=== PATIENT | male | born 1950 | race Caucasian/White ===

== ENCOUNTER 2016-09-20 19:58 | Inpatient (IN) | payer MEDICARE, OTHER ==
[~2016-09-20] VITALS: Ht 180.3 cm; Wt 82.4 kg
--- NOTE | ~2016-09-20 | CO ---
ADMIT: 09/20/2016 RM/LOC: 632 [facility] MR#: [id number] [address] [address] DESHAUN TAYLOR [address] [place] [address] Consultation SEX: M AGE: 66 : 1950 Corrected: 09/25/2016 0835 djs DATE OF CONSULTATION: 09/24/2016 ATTENDING PHYSICIAN: Ant Brown CONSULTING PHYSICIAN: Praveen Cabrera MD REASON FOR CONSULTATION: Left knee cellulitis. Rule out septic bursitis. HISTORY OF PRESENT ILLNESS: The patient is a 66-year-old male, who a couple weeks ago, was out on his property, landed on his left knee on some riff-raff. He had started to develop some pain, redness, and swelling here. He was seen by primary care physician. Had a lot of cellulitis at that time. We placed a needle in to his bursa, got just a little bit of fluid out, 1000 white cells, and ended up growing out some methicillin-sensitive staph. He was treated on some p.o. antibiotics. Initially, got a shot of Rocephin. Was seen, was improving with this. He had some Bactrim added to his p.o. antibiotics but about a day or two later started having increased symptoms, came to the hospital and was admitted for IV antibiotic treatment. Initially, his C- reactive protein was 17; it is now down to 7, and still had a couple less fever spikes. White count is normal and does have an elevated sedimentation rate. Speaking with Ray today, he says that things are better and overall he feels better. PHYSICAL EXAMINATION: Examination of the left knee, redness over the anterior aspect extends medially and laterally here a little bit. He says this is actually quite improved over the last day or so here. He is on IV antibiotics, vancomycin, and looks like Rocephin. Had some soft tissue swelling here. No joint irritability. Range his knee without any pain or discomfort. Really not any fluid collection or fluctuance over the prepatellar bursa but maybe just a little thickened bursal tissue and soft tissue swelling here. ADMIT: 09/20/2016 RM/LOC: 632 [facility] MR#: [id number] [address] [address] DESHAUN TAYLOR [address] [place] [address] Consultation SEX: M AGE: 66 : 1950 ASSESSMENT: Left knee cellulitis. I really do not feel any significant fluid in the prepatellar bursa. There is some soft tissue swelling maybe a little bursal thickening here. PLAN: At this point, I would continue with IV antibiotics and warm compresses here. He can be up weightbearing as tolerated. I think once he continues to show improvement, he could probably be put on some p.o. antibiotics. I do not see any operative indications at this time or any significant fluid in the prepatellar bursa. We will follow along as well. Praveen Cabrera MD/ ronny JOB #: [id number] CC: Ant Brown, Attending Physician Ant Brown, Family Physician Corrected: 09/25/2016 0835 sam
--- NOTE | 2016-09-24 00:45 | ER ---
ADMIT: 09/20/2016 RM/LOC: 632 [facility] MR#: [id number] [address] [address] AIDANERDESHAUN [address] [place] [address] Emergency Room Report SEX: M AGE: 66 : 1950 DATE: 09/20/2016 HISTORY OF PRESENT ILLNESS: The patient is a 66-year-old male with a past medical history of atrial fibrillation and back surgery, who came to the ER with chief complaint of left knee pain and swelling and erythema. The patient states for the last 3 days, he noticed some redness and swelling and erythema over the left knee and he has a history of left knee trauma, fall and hitting the concrete in the last few weeks. After which, the knee also was swollen. The patient states yesterday he has been seen by Dr. Brown for the same reason and the left knee tapping which was done from the superior part over the patella did not result him any pause. The patient also has been seen today by Dr. Cabrera, Orthopedic Surgery and the patient is already on antibiotics, doxycycline and Bactrim and ceftriaxone for the treatment. The patient states that the last few days he has had a fever of 102 and came to the ER for further followups and treatments. The patient denies any cough, runny nose, chest pain, shortness of breath, abdominal pain, or any other difficulties other than the left knee pain. The patient denies any similar symptoms in the past. PHYSICAL EXAMINATION: VITAL SIGNS: The patient had a low fever of 100.3 in the ER. VITAL SIGNS: The patient has heart rate of 95, blood pressure was stable. The patient was not tachypnea. HEAD AND NECK: Normal. CHEST: Clear bilaterally. HEART: Normal heart sounds. ABDOMEN: Soft. EXTREMITIES: The right lower extremity is normal. The patient had normal peripheral pulses. Normal capillary filling in all extremities, in the left lower extremity and the need is mild ballottement. There is erythema and warmth on the left knee mostly on the superior part and all of the superior part of patella and also there is some lymphangitis streaks going superior and inferior from the knee. The patient can easily do active range of motion of the knee to a very good degree. Considering the patient's presentation, acute ADMIT: 09/20/2016 RM/LOC: 632 [facility] MR#: [id number] [address] [address] STANDERDESHAUN [address] [place] [address] Emergency Room Report SEX: M AGE: 66 : 1950 septic bursitis versus acute septic arthritis are top two differentials, considering the patient can do the complete active range of motion without difficulty. Put acute septic bursitis at the top of our differentials, at this stage and with this presentation, I do not see him the best idea to do the arthrocentesis of the left knee considering that there is a superficial infection over the area as I do not want to introduce any infection inside the joint. Still it could be septic arthritis in a very early stages and needs further followups and repeat examinations. The patient received vancomycin 1 g IV in the ER. The patient's vaccinations are up-to-date. Internal Medicine was consulted after the patient was admitted for further followups and treatments of left knee bursitis, cellulitis, rule out left knee septic arthritis, and sepsis. Michele Cook MD/ ronny JOB #: [id number] CC: Ant Brown MD, Attending Physician Ant Brown MD, Family Physician
[2016-09-26] MEDS ORDERED: FIBER500 MG PO (13:27)
[2016-09-26] MEDS ORDERED: BACTRIM DS DPS1 TAB PO (13:27)
[2016-09-26] MEDS ORDERED: BETAPACE DPS80 MG PO (13:27)
[2016-09-26] MEDS ORDERED: VIBRAMYCIN-DPS100 M2 PO (13:27)
--- NOTE | 2016-09-27 09:14 | CO ---
ADMIT: 09/20/2016 RM/LOC: 632 [facility] MR#: [id number] [address] [address] BRANDONDESHAUN [address] [place] [address] Consultation SEX: M AGE: 66 : 1950 DATE OF CONSULTATION: 09/23/2016 ATTENDING PHYSICIAN: Ant Brown CONSULTING PHYSICIAN: Praveen Cabrera MD CHIEF COMPLAINT: Left knee cellulitis and swelling. HISTORY OF PRESENT ILLNESS: This is a 66-year-old male, who I am seeing at the request Dr. Brown for consultation of left knee pain and cellulitis. His history is well outlined in his H and P by Dr. Brown. I will review some of that here. He was doing some work last week. He was doing a lot of kneeling and he hit his knee on some concrete rubble. He eventually developed pain and swelling. He was seen by Dr. Brown last week and was started on oral antibiotics either Bactrim or doxycycline. He saw Dr. Cabrera for consultation for possible bursitis in the Orthopedic office on Friday, and was added either Bactrim or doxycycline, so either way he was on both of those. No indications for surgery at that time. Over the weekend, his pain got worse, he started to spike some fevers, so he came into the emergency room on the for further evaluation. He was admitted due to that and was started on IV vancomycin. Apparently, he also had some Rocephin. He reports that since he was started on his IV antibiotics, his swelling has improved and his redness has come down. He has no pain with knee motion. He has no prior history of injury other than a remote history several years ago of possibly a hematoma that was drained by his primary care doctor at that time, but no other problems since then. Other than the fevers and chills, he has otherwise felt fairly well. Given all of this, Orthopedic consultation has been requested. PAST MEDICAL HISTORY: 1. Paroxysmal atrial fibrillation. 2. History of BPH. 3. History of cardiomyopathy. 4. Family history of malignant hyperthermia without personal history. PAST SURGICAL HISTORY: 1. Diskectomy. 2. Hernia repair x2. 3. Finger surgery on the left hand. SOCIAL HISTORY: Denies smoking or alcohol abuse. He is retired. He is very active in the outdoors. He lives in [place] with his . FAMILY HISTORY: Coronary artery disease and Meniere's disease. MEDICATIONS: Reviewed in the MAR. ALLERGIES: MUSCLE RELAXERS DUE TO SOME FORM OF A FAMILY HISTORY SETTING UP MALIGNANT HYPERTHERMIA, BUT NO PERSONAL HISTORY OF ALLERGY. ADMIT: 09/20/2016 RM/LOC: 632 [facility] MR#: [id number] [address] [place], [place] [id number] AIDANDESHAUN [address] [place] [address] Consultation SEX: M AGE: 66 : 1950 LABORATORY AND IMAGING DATA: White count on admission 8.1, down to 7.8 yesterday; hemoglobin was 13.8, down to 12.3 yesterday; sedimentation rate 71, up from 62 on admission. CRP 10.8, down from 17.5 on admission. Previously obtained x-rays of the knee from date of admission, showed degenerative changes about the left knee with no acute bony abnormalities, anterior soft tissue swelling. REVIEW OF SYSTEMS: Negative other than those reported in the HPI. PHYSICAL EXAMINATION: GENERAL: Otherwise, comfortable-appearing, 66-year-old male, in no distress, lying comfortably in a hospital bed in room #632. He is oriented x3, pleasant, and interactive. EXTREMITIES: Exam of the left knee shows the skin is intact without acute abnormal findings. He does have a couple of small scars, one superior lateral by patella, and one inferior medial around by the joint line. He has diffuse redness anteriorly about the knee, stops at about the superior pole of patella, down about tibial tubercle, goes a little bit medial and a little bit lateral to about the mid point of the knee. He has no feelings of fluid collection or septic bursitis. The knee is slightly warm to touch. He has quite a bit of edema diffusely about the knee which is mildly tender to palpation. He has no appreciable joint effusion. He has full range of motion without discomfort within the knee itself, just a little bit of tightness anteriorly. He has stable ligaments. His neurovascular status is intact. He does have swelling about the ankle and foot. However, he had a 4 inch Nish wrap just around his calf where there is no swelling or edema, had been squeezing that inferiorly down into his foot. ASSESSMENT: Left knee cellulitis. PLAN: Deshaun has gotten quite a bit better with the IV antibiotics. We will ADMIT: 09/20/2016 RM/LOC: 632 [facility] MR#: [id number] [address] [place] [phone] STANDER DESHAUN L [address] [place] [address] Consultation SEX: M AGE: 66 : 1950 have him continue with those per primary care. I think he is going to do fine resolving this over the course of next couple of weeks with antibiotics. Right now, there is no surgical indication. He does not have a septic joint. He does not have septic drainable prepatellar bursitis, most likely cellulitis. He could even have a small hematoma of some place within there, it is not palpable or a drainable mass at all. We will continue to follow given and his improvement, his is CRP is trending down nicely which would give us a good indication of acute treatment, so we will continue to follow. No surgical indications at this time. I thank Dr. Brown for requesting Orthopedic consultation and let me participate in Deshaun's care. Jerson Valenzuela PA-C / Praveen Cabrera MD / ronny JOB #: [id number] CC: Ant Brown, Attending Physician Ant Brown, Family Physician
--- NOTE | 2016-10-04 16:27 | HP ---
ADMIT: 09/20/2016 RM/LOC: 632 [facility] MR#: [id number] 2620 [facility] [address] [place], [place] [address] DESHAUN TAYLOR [address] [place] [address] History and Physical SEX: M AGE: 66 : 1950 Corrected: 09/23/2016 1415 ariadne DATE OF SERVICE: 09/20/2016 HISTORY OF PRESENT ILLNESS: Mr. Taylor is a 66-year-old male with past medical history significant for paroxysmal atrial fibrillation, BPH with intermittent lower urinary tract symptoms, history of cardiomyopathy, and recent trauma to his left knee. He states that he was moving rocks to clean up a place just [place] bit north of [place]. He put his foot down and lost his balance and started to fall forward. He knelt down on his left knee and a jagged piece of rock hit him in the left knee. He states that he immediately had pain and knew that his knee would be painful and swollen for quite some time. He presented to the [facility] on 09/19 after 2 days of fevers, chills, left knee and subcutaneous tissue swelling as well as quite severe pain. He was able to move the joint at all times, but did have quite bit of discomfort. He had some fluid drained from his prepatellar bursa and sent for studies. He was started on doxycycline in clinic and had a followup set up with Dr. Cabrera of Orthopedics on 09/20/2016. The patient states that he did attend the appointment with Dr. Cabrera and was placed on Bactrim as well as doxycycline. He states that radiographs of the knee were performed and were negative for any joint fracture. He states that after his clinic appointment with Dr. Cabrera on 09/20, he went home and continued to take the Bactrim as well as the doxycycline, but continued to have quite high fevers. He states that his grandchildren came over to visit and his leg was quite a bit more swollen and more painful than it had been on the and he was noted to have a fever up to 103. His encouraged him to go to the emergency room. He was seen in the emergency room and provided with some normal saline bolus, some Tylenol as well as started on IV vancomycin. He was admitted for concern for the possible septic bursitis versus superficial cellulitis. He states that he has continued to have some fevers while here in the hospital today, but thinks that may be they are maybe a little bit less than they had been. He denies any other systemic symptoms. He is not having any weight loss or weight gain. He is not having any changes in hearing and changes in vision. He is not having any headaches. He is not having any chest pain or shortness of breath at this time. He is not having any difficulties with his bowel or bladder. He states that he is taking in good oral intake. He thinks that the leg is less swollen today than it was last evening when he presented to the emergency room. He continues to have some superficial discomfort of the area, but no discomfort in his joint. Review of his synovial/bursal fluid studies from 09/19 reveal a bloody specimen with approximately 1082 white cells with 24% of those being PMNs. His Gram-stain was negative for any organism and his culture is currently pending at this point in time. PAST MEDICAL HISTORY: Significant for the paroxysmal atrial fibrillation for which he takes sotalol, history of BPH with lower urinary tract symptoms, history of , history of cardiomyopathy, and family history of malignant hyperthermia. ADMIT: 09/20/2016 RM/LOC: 632 [facility] MR#: [id number] [facility] [address] [address] DESHAUN TAYLOR [address] [place] [address] History and Physical SEX: M AGE: 66 : 1950 PAST SURGICAL HISTORY: Significant for a diskectomy, hernia repair x2, finger surgery of the second digit on the left hand and some random breaks and scratches here and there. HOME MEDICATIONS: The only prescription home medication that he consistently takes is the sotalol. He also does take some fiber for stomach ulcers. ALLERGIES: HE STATES THAT HE DOES HAVE A FAMILY HISTORY OF SOME PROBLEMS WITH MUSCLE RELAXANTS IN THE SETTING OF MALIGNANT HYPERTHERMIA. HE DOES NOT TAKE MUSCLE RELAXANTS FOR THAT REASON. HE DOES NOT HAVE ANY PERSONAL HISTORY OF ALLERGIES TO THEM. FAMILY MEDICAL HISTORY: His mother had hypertension and passed of old age at the age of 97. His father had a history of coronary artery disease and had his first heart attack in the 1970s and then passed approximately 20 years later at the age of 89. His father was a heavy smoker. He has two siblings that have had Meniere disease and continue to struggle with it. He has one sibling who has a history of plantar fasciitis and continues to work on controlling this issue. He has children who are currently healthy. SOCIAL HISTORY: He denies any tobacco use. He denies any significant alcohol use. He denies any drug use. He has not had any problems previously with prescription medications such as narcotics. 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 He continues to be quite active and enjoys being outdoors. He and his reside in [place] and have children who are fairly close. REVIEW OF SYSTEMS: A complete review of systems was completed for this encounter and is negative other than noted in the HPI. PHYSICAL EXAMINATION: VITAL SIGNS: Temperature of 100.3, pulse of 79, respirations of 16, blood pressure of 122/74, and saturating at 99% on room air. He has not had any fluctuations in his pulse or blood pressure. His temperature has been as low as 99.2 while here. GENERAL: He is resting comfortably in the hospital bed. He is alert and oriented. He is not in any distress. HEENT: Normocephalic and atraumatic. Hearing intact to conversation. Extraocular eye movements are intact. He has normal moist mucous membranes. LUNGS: Clear to auscultation bilaterally. No wheezes or rhonchi noted. HEART: Regular rate and rhythm. No murmurs, rubs, or gallops detected. ABDOMEN: Soft and nontender. Normoactive bowel sounds. No organomegaly. EXTREMITIES: He does have a warm and erythematous left knee with surrounding erythema and color of the soft tissue. He has this area marked out. It does involve some of the soft tissue along his lower leg and over his anterior calf as well as some on his distal thigh, with more involvement on the medial side than on the lateral side. He is able to move that leg without much discomfort. He does not flinch as much in pain as he did on when I saw him in the ADMIT: 09/20/2016 RM/LOC: 632 [facility] MR#: [id number] [address] [place] [address] AIDANDESHAUN [address] [place] [address] History and Physical SEX: M AGE: 66 : 1950 clinic with palpation over the area. In comparison to his exam on , he does have decreased swelling of the area. He has good pulses symmetrically in the posterior tibialis as well as dorsalis pedis. Sensation is intact. NEUROLOGIC: Grossly normal. PSYCHIATRIC: He has a normal psychiatric exam. His affect is mood congruent. LABORATORY DATA: On admission, he did have a lactic acid that was drawn and found to be 125. He also had a CMP that was significant for glucose of 124 and an albumin of 3.4. His AST was 68 while ALT was 55, otherwise his CMP is unremarkable with normal electrolytes. His creatinine is 1.0. He also had a CBC completed on admission. His white count was 8.1 and his hemoglobin was 13.8 with an absolute neutrophil count of 6.2. His platelet count was 187. He was noted to have a sedimentation rate of 62. He did have one blood culture completed on admission and it demonstrates no growth to date. IMAGING: There is no additional imaging completed for this encounter. ASSESSMENT AND PLAN: Mr. Deshaun Taylor is a 66-year-old man with past medical history significant for atrial fibrillation, benign prostatic hyperplasia, and history of cardiomyopathy, who presented after traumatic fall left him with what appeared to be traumatic bursitis with possible infection as well as a subcutaneous cellulitis. He is admitted for additional antibiotic therapy in the setting of having increased fevers up to 103 prior to admission. 1. Traumatic bursitis with possible septic bursitis as well. He has been seen by Orthopedics. This area has been drained once on the . The antibiotics that he was placed on, the doxycycline and Bactrim, is appropriate first line treatment for the treatment of mild septic bursitis. However, given his continued fever, it is appropriate to have him admitted and initiate IV antibiotic therapy. His doxycycline will be continued while the Bactrim will be discontinued. He will also be continued on the vancomycin that was started in the emergency room and the regimen will be augmented with Rocephin 2 g IV daily. We will continue to keep an eye on the area. He may need to have a drain placed if it is not improved with antibiotic therapy. If he demonstrates decreased range of motion in that joint or increased pain, there may be a need for orthopedic surgery to perform a procedure to wash the area out. We will obtain intermittent CRP as well as sed rate and CBC to help us monitor his clinical response to the antibiotics. 2. Cellulitis with fever. The blood culture has been drawn. He did not demonstrate any findings concerning for sepsis on admission. He does not meet criteria for sepsis or SIRS as he only has one out of the multiple criteria for which he qualifies, that being temperature. We will continue ADMIT: 09/20/2016 RM/LOC: 632 [facility] MR#: [id number] [address] [place] [phone] DESHAUN TAYLOR [address] [place] [address] History and Physical SEX: M AGE: 66 : 1950 to treat his cellulitis along with the bursitis as above. 3. History of atrial fibrillation with a CHADS-VASc score of 1. This places him at a stroke risk of approximately 0.6% per year. He is considered low risk and does not need anticoagulation at this time. He is rate controlled and rhythm controlled with sotalol. We will continue the sotalol at this point in time. 4. Benign prostatic hyperplasia with history of lower urinary tract symptoms. We will keep an eye on this issue. He continues to make good urine at this point in time and does not complain of any lower urinary tract symptoms. Carmen Villafuerte MD Resident / Ant Brown MD / ronny JOB #: [id number] CC: Ant Brown, Attending Physician Ant Brown, Family Physician Corrected: 09/23/2016 1415 ariadne
--- NOTE | 2016-10-06 08:54 | DS ---
ADMIT: 09/20/2016 RM/LOC: 632 [facility] MR#: [id number] [address] [address] DESHAUN TAYLOR [address] [place] [address] General Discharge Summary SEX: M AGE: 66 : 1950 ADMISSION DATE: 09/20/2016 DISCHARGE DATE: 09/25/2016 FINAL DIAGNOSES: 1. Cellulitis with methicillin-susceptible Staphylococcus aureus. 2. Traumatic bursitis. 3. History of atrial fibrillation. REASON FOR ADMISSION: See dictated H and P. Briefly, this is a gentleman who had a fall onto his left knee and sustained some swelling and redness to this area, did not respond to oral antibiotics, so was admitted for IV antibiotics. There was aspiration of bloody fluid from his prepatellar bursa, which had small amount of MSSA grown which was thought to be from the cellulitis rather than from an actual septic bursitis, therefore Orthopedics did not feel they needed to do a washout. He overall continues to do okay. His CRP mildly trended down. He was continued on Rocephin and vancomycin. As he gradually improved by the day of discharge, he was felt safe to go home with oral antibiotics. He will continue on his Betapace 80 mg b.i.d., doxycycline 100 mg b.i.d., and he was put on Bactrim by Dr. Cabrera until he finish the supplies as well. Follow up with me in 1 week's time. Ant Brown MD/ ronny JOB #: [id number] CC: Ant Brown MD, Attending Physician Ant Brown MD, Family Physician
== END 2016-09-25 14:35 | disposition home or self-care (01) | DRG 603 ==
LOC: ER 19:58 → 6PED 22:15
PROVIDERS: ADMIT Internal Medicine
DX: L03.116 Cellulitis of left lower limb (principal); I42.9 Cardiomyopathy, unspecified; I48.0 Paroxysmal atrial fibrillation; K59.00 Constipation, unspecified; M71.562 Other bursitis, not elsewhere classified, left knee; A49.01 Methicillin susceptible Staphylococcus aureus infection, unspecified site; N40.1 Benign prostatic hyperplasia with lower urinary tract symptoms; I51.7 Cardiomegaly; Z82.49 Family history of ischemic heart disease and other diseases of the circulatory system